=== PATIENT | male | born 1995 | race American Indian/Alaskan Native ===

== ENCOUNTER 2018-02-16 17:26 | Emergency (ER) | payer SELFPAY ==
[2018-02-16] MEDS ORDERED: TORADOL IM ONE (19:32)
--- NOTE | 2018-02-16 19:40 | Emergency Department Report ---
[facility] Doc - Documentation Documentation: Patient is a 22-year-old -[place] male who fell down a flight of stairs 24 hours ago. Patient states he was loss of consciousness he fell on concrete. Patient is hurting in his his neck ribs upper back at this time. Patient will have CTs of his C-spine chest and abdomen which will also sh bony structures and will be reassessed NICCI ow
--- NOTE | 2018-02-16 19:41 | Emergency Department Report ---
ED Fall HPI - General Chief Complaint: Fall Stated Complaint: FALL Time Seen by Provider: 02/16/18 19:28 Source: patient, family, EMS Mode of arrival: Wheelchair - Related Data Home Medications Medication Instructions Recorded Confirmed Last Taken Insulin Lispro [Humalog 100 0 units SUB-Q TID 07/06/15 07/06/15 Unknown UNITS/ML Kwikpen] Insulin NPH Human Isophane 15 unit SQ BID 07/06/15 07/06/15 Unknown [HumuLIN N] Previous Rx's Medication Instructions Recorded Last Taken Type Amoxicillin [Trimox CAP] 500 mg PO BID #20 capsule 07/06/15 Unknown Rx Antipyrine/Benzocaine/Glycerin 2 drops AU Q8HR #1 bottle 07/06/15 Unknown Rx [Auralgan Otic] Allergies Allergy/AdvReac Type Severity Reaction Status Date / Time No Known Allergies Allergy Verified 02/16/18 17:30 ED Review of Systems ROS: Stated complaint: FALL Other details as noted in HPI ED Past Medical Hx - Past Medical History Hx Diabetes: Yes (TYPE 1) - Surgical History Additional Surgical History: Jaw surgery - Social History Smoking Status: Never Smoker Substance Use Type: None - Medications Home Medications: Home Medications Medication Instructions Recorded Confirmed Last Taken Type Amoxicillin [Trimox CAP] 500 mg PO BID #20 capsule 07/06/15 Unknown Rx Antipyrine/Benzocaine/Glycerin 2 drops AU Q8HR #1 bottle 07/06/15 Unknown Rx [Auralgan Otic] Insulin Lispro [Humalog 100 0 units SUB-Q TID 07/06/15 07/06/15 Unknown History UNITS/ML Kwikpen] Insulin NPH Human Isophane 15 unit SQ BID 07/06/15 07/06/15 Unknown History [HumuLIN N] ED Physical Exam - General Limitations: No Limitations ED Course Vital Signs 02/16/18 17:30 Temperature 98.7 F Pulse Rate 68 Respiratory 18 Rate Blood Pressure 142/104 O2 Sat by Pulse 100 Oximetry Critical care attestation.: If time is entered above; I have spent that time in minutes in the direct care of this critically ill patient, excluding procedure time. ED Disposition Condition: Stable Referrals: LEIGH SULLIVAN MD [Primary Care Provider] - 3-5 Days
--- NOTE | 2018-02-16 20:42 | Cat Scan Report ---
FINAL REPORT PROCEDURE: CT HEAD/BRAIN WO CON TECHNIQUE: Computerized tomography of the head was performed without contrast material. HISTORY: fakll injury on stairs LOC, neck back rib pain COMPARISON: No prior studies are available for comparison. FINDINGS: Skull and scalp: Normal. Paranasal sinuses: Normal. Ventricles and subarachnoid spaces: Normal. Cerebrum: No evidence of hemorrhage, acute infarction or mass . Cerebellum and brainstem: No evidence of hemorrhage, acute infarction or mass. Vasculature: Normal. Comments: None. IMPRESSION: Normal Examination
--- NOTE | 2018-02-16 21:10 | Cat Scan Report ---
FINAL REPORT PROCEDURE: CT CERVICAL SPINE WO CON TECHNIQUE: Computerized tomography of the cervical spine was performed from the skull base to T1 without contrast material. HISTORY: fakll injury on stairs LOC, neck back rib pain COMPARISON: No prior studies are available for comparison. FINDINGS: There is straightening of the cervical spine. Vertebral height is within normal limits. An acute fracture is not identified. Prevertebral soft tissues are within normal limits. Visualized lung apices are clear. Soft tissues are unremarkable. Thyroid demonstrates normal size and density. Visualized bilateral paranasal sinuses and mastoid air cells are clear. C1-2: No significant abnormality. C2-3: No significant abnormality. C3-4: No significant abnormality. C4-5: No significant abnormality. C5-6: No significant abnormality. C6-7: No significant abnormality. C7-T1: No significant abnormality. Other: No additional findings. IMPRESSION: No acute fracture Straightening of the cervical spine is most likely secondary to spasm or positioning..
--- NOTE | 2018-02-16 21:22 | Cat Scan Report ---
FINAL REPORT PROCEDURE: CT CHEST WO CON TECHNIQUE: Computerized axial tomography of the chest was performed without contrast material. This study is performed without intravenous contrast and the sensitivity for pathology, including neoplasms, adenopathy, abscess, pulmonary embolism and aortic dissection, is reduced. HISTORY: fakll injury on stairs LOC, neck back rib pain COMPARISON: No prior studies are available for comparison. TECHNICAL QUALITY: Satisfactory. FINDINGS: This study is limited due to lack of contrast. Anterior mediastinal fat is replaced by soft tissue density lesion measuring about 2.9 x 2.4 x 2.6 centimeters with slightly convex margin on the left and ring slightly concave margin on the right is Heart and pericardium: Normal. Thoracic aorta: Normal. Pulmonary vasculature: Normal. Lymph nodes: No enlarged thoracic lymph nodes. Lungs: Normal. Pleural space: No effusion, thickening, or pneumothorax. Musculoskeletal structures: No significant abnormality. IMPRESSION: Increased density of the anterior mediastinal region is suspicious for mediastinal hemorrhage. Aortic injury cannot be excluded. CT angio is recommended. No acute pulmonary process..
--- NOTE | 2018-02-16 21:35 | Cat Scan Report ---
FINAL REPORT PROCEDURE: CT ABDOMEN WO CON TECHNIQUE: Computerized axial tomography of the abdomen was performed without intravenous contrast. This study is performed without intravascular contrast material and its sensitivity for abdominal and pelvic pathology, including neoplasms, inflammation, abscess, free fluid, thrombosis, arterial dissection and infarction, is reduced compared with a contrast enhanced study. HISTORY: fakll injury on stairs LOC, neck back rib pain COMPARISON: No prior studies are available for comparison. FINDINGS: Liver, spleen, pancreas and bilateral adrenal glands are within normal limits. Bilateral kidneys demonstrate normal density without calculi or hydronephrosis. Aorta is of normal caliber. There is no free fluid or free air. Gallbladder is contracted. Small bowel loops are within normal limits. Moderate degree residual stool. Appendix is normal. Moderate amount of residual food material is noted in the stomach. IMPRESSION: Impression Limited study due to lack of contrast. No obvious acute intra-abdominal or pelvic pathology as visualized on this noncontrast study.
[2018-02-16] MEDS ORDERED: MORPHINE IV ONE (21:43)
[2018-02-16] MEDS ORDERED: ZOFRAN IV ONE (21:43)
--- NOTE | 2018-02-16 21:43 | Emergency Department Report ---
Chief Complaint: Fall Stated Complaint: FALL Time Seen by Provider: 02/16/18 19:00 - HPI History of Present Illness: Patient reports that he fell down a flight of stairs yesterday and complaining of bilateral flank pain, right rib pain and neck pain posteriorly. Patient and denies any headache but reports that he is having generalized pain. Denies any chest wall or abdominal pain. He reports upper and lower back pain. Pain is 7 out of 10 and achy. Nothing makes it better and nothing makes it worse. Patient said he took plain Tylenol at home and it didn't help. Denies vomiting blood. Denies any bruising to his skin. EMS reported that patient blood glucose was at 333. Patient blood pressure is 142/104 and he denies history of high blood pressure. - ROS Review of Systems: All systems are negative unless stated in HPI above - Exam Vital Signs: Vital Signs 02/16/18 17:30 Temperature 98.7 F Pulse Rate 68 Respiratory 18 Rate Blood Pressure 142/104 O2 Sat by Pulse 100 Oximetry Physical Exam: Gen.: This is a 22-year-old male well-nourished well-developed in no acute distress. Neck: Positive C-spine tenderness, full range of motion no tracheal deviation. Supple Back: Positive vertebral spine lumbar and thoracic tenderness. Positive posterior left rib tenderness. Neurological: Alert and oriented 3, normal gait, normal speech. Ambulate without any difficulties. MSE screening note: Focused history and physical exam performed. Due to findings the following was ordered:transfer to main ed ED Medical Decision Making - Medical Decision Making ED course: Radiologist called to report abnormal CT and wanted patient to CTA Angio of the tests because suspicion for injury to the thoracic aorta. Patient transferred to main ED to and trauma labs ordered along with CT scans. Spoke with Dr. Iniguez regarding patient. Patient stable upon transfer to [facility]. I discussed with patient reason for transfer and he understands. ED Disposition for MSE Condition: Stable Referrals: LEIGH SULLIVAN MD [Primary Care Provider] - 3-5 Days
[2018-02-16 22:05] LABS: INR 0.87 (0.87-1.13)
[2018-02-16 22:06] LABS: Partial Thromboplastin Time 24.3 Sec. (24.2-36.6)
[2018-02-16 22:07] LABS: Bilirubin,Urine NEG (Negative); Blood,Urine NEG (Negative); Color,Urine Yellow (Yellow); Protein,Urine <15 mg/dL mg/dL (Negative); Urobilinogen,Urine < 2.0 mg/dL (<2.0); WBC,Urine < 1.0 /HPF (0.0-6.0)
--- NOTE | 2018-02-16 22:11 | Emergency Department Report ---
HPI - General Chief Complaint: Fall Time Seen by Provider: 02/16/18 19:28 - HPI HPI: The patient is a 22-year-old male who presents for evaluation of upper chest pain, neck pain, side pain, and back pain. The patient states that he fell down approximately 10 stairs 24 hours ago, has experienced moderate in severity aching pain to the chest, right ribs, and back, constant since onset, exacerbated with twisting of the body. He denies headache, dyspnea, abdominal pain, pain to the extremities, flank pain, paresthesias, or lateralizing motor deficit, or other focal neurological deficit. ED Past Medical Hx - Past Medical History Hx Diabetes: Yes (TYPE 1) - Surgical History Additional Surgical History: Jaw surgery - Social History Smoking Status: Never Smoker Substance Use Type: None - Medications Home Medications: Home Medications Medication Instructions Recorded Confirmed Last Taken Type Amoxicillin [Trimox CAP] 500 mg PO BID #20 capsule 07/06/15 Unknown Rx Antipyrine/Benzocaine/Glycerin 2 drops AU Q8HR #1 bottle 07/06/15 Unknown Rx [Auralgan Otic] Insulin Lispro [Humalog 100 0 units SUB-Q TID 07/06/15 07/06/15 Unknown History UNITS/ML Kwikpen] Insulin NPH Human Isophane 15 unit SQ BID 07/06/15 07/06/15 Unknown History [HumuLIN N] traMADol [Ultram 50 MG tab] 50 mg PO Q6HR PRN #15 tablet 02/17/18 Unknown Rx ED Review of Systems ROS: Stated complaint: FALL Other details as noted in HPI Constitutional: denies: fever ENT: denies: throat pain, reports ant lower neck pain Respiratory: denies: cough, shortness of breath Cardiovascular: reports chest pain Endocrine: denies unexplained weight loss or gain Gastrointestinal: denies: abdominal pain, nausea Genitourinary: denies: dysuria Musculoskeletal: reports back pain, side pain Skin: denies: rash Neurological: denies: headache Hematological/Lymphatic: denies: easy bleeding or easy bruising Psych: denies sadness or hopelessness Physical Exam - Physical Exam Vital Signs: Vital Signs 02/16/18 02/16/18 17:30 21:39 Temperature 98.7 F 98.3 F Pulse Rate 68 66 Respiratory 18 18 Rate Blood Pressure 142/104 Blood Pressure 143/94 [Left] O2 Sat by Pulse 100 99 Oximetry Physical Exam: General: well-nourished, well-developed, no acute distress Head: Normocephalic, atraumatic Eyes: normal sclera ENT: Mucous membranes are pink and moist Neck: trachea midline, neck supple, No neck stiffness, no cervical adenopathy Respiratory: Breath sounds equal bilaterally, no wheezing, rales, or rhonchi Cardio: S1 and S2 present, no murmurs, rubs, gallops, capillary refill is brisk Abdomen: Normoactive bowel sounds, soft abdomen, no rigidity, no guarding or rebound tenderness Chest WALL/Back: tenderness to palpation of the chest wall upper sternum and right lower ribs at the mid-axillary line, no CVA tenderness with percussion Musc: No pitting edema Skin: No rash Neuro: no facial drooping, normal speech Psych: Normal affect ED Course Vital Signs 02/16/18 02/16/18 17:30 21:39 Temperature 98.7 F 98.3 F Pulse Rate 68 66 Respiratory 18 18 Rate Blood Pressure 142/104 Blood Pressure 143/94 [Left] O2 Sat by Pulse 100 99 Oximetry ED Medical Decision Making - Lab Data Result diagrams: 02/17/18 02:04 02/16/18 21:47 - Medical Decision Making The patient was seen and examined by myself. The patient is placed on a supervisor elementary education and continuous pulse ox. On initial evaluation, the patient was found to be in no distress. Evaluation orders were placed. The patient is given IM Toradol by ED provider Dr. Bauer, whom performed initial evaluation and placed initial orders. CT scan of the chest without contrast revealed a mediastinal findings concerning for potential hemorrhage, and aortic dissection was unable to be ruled out. As such blood work and a CT angiogram of the chest and abdomen have been ordered. The patient given IV pain medication. Lab results revealed mildly elevated glucose of 236, and otherwise are grossly reassuring including normal hemoglobin and hematocrit levels. CT angiogram of the chest is negative for aortic dissection or pulmonary embolism, and again reveals superior mediastinum likely hematoma. CT scan the head was negative. CT scan the cervical spine was unremarkable. CT scan abdomen and pelvis was unremarkable the patient was reevaluated and reported that his pain is completely resolved and that he is asymptomatic and feels fine at his normal baseline. He is currently smiling and actively engaging in conversation. Dr. Goodman, a cardiothoracic surgeon was consulted. He discussed the patient' s presentation and evaluation findings and submitted that the patient's does not have an active hemorrhage as his injury occurred greater than one day ago, and as the patient has normal vital signs, normal hemoglobin and hematocrit, and no pain. Dr. Salomon submitted that the patient is stable for outpatient follow-up. The patient was reevaluated and reported that their symptoms were markedly improved. The patient is stable for discharge with outpatient follow- up. The patient is given follow-up and return instructions. The patient expressed understanding and agreed with the plan. The patient is discharged in stable condition. Critical care attestation.: If time is entered above; I have spent that time in minutes in the direct care of this critically ill patient, excluding procedure time. ED Disposition Clinical Impression: Acute chest pain, Rib pain on right side, Neck pain, acute Chest wall hematoma Qualifiers: Encounter type: initial encounter Laterality: unspecified laterality Qualified Code(s): S20.219A - Contusion of unspecified front wall of thorax, initial encounter Acute low back pain Qualifiers: Back pain laterality: bilateral Sciatica presence: without sciatica Qualified Code(s): M54.5 - Low back pain Disposition: DC-01 TO HOME OR SELFCARE Is pt being admited?: No Does the pt Need Aspirin: No Condition: Stable Instructions: Chest Pain (ED), Contusion in Adults (ED), Musculoskeletal Pain ( ED), Back Pain (ED) Prescriptions: traMADol [Ultram 50 MG tab] 50 mg PO Q6HR PRN #15 tablet PRN Reason: Pain Referrals: LEIGH SULLIVAN MD [Primary Care Provider] - 3-5 Days Forms: Accompanied Note, Work/School Release Form(ED) Time of Disposition: 03:49
[2018-02-16 22:13] LABS: Alanine Aminotransferase 15 units/L (7-56); Albumin 4.8 g/dL (3.9-5); BUN/Creatinine Ratio 23; Blood Urea Nitrogen 14 mg/dL (9-20); Calcium 9.8 mg/dL (8.4-10.2); Hemolysis Index 19
--- NOTE | 2018-02-16 23:19 | Cat Scan Report ---
FINAL REPORT PROCEDURE: CT ANGIO CHEST TECHNIQUE: Computerized tomographic angiography of the chest was performed after the IV injection of iodinated nonionic contrast including image processing. The image data was postprocessed using 2-dimensional multiplanar reformatted (MPR) and 3-dimensional (MIP and/or volume rendered) techniques. HISTORY: chest pain COMPARISON: No prior studies are available for comparison. FINDINGS: Heart and pericardium: Normal. Thoracic aorta: Normal. Pulmonary vasculature: Normal. Lymph nodes: No enlarged thoracic lymph nodes. Lungs: Normal. Pleural space: No effusion, thickening, or pneumothorax. Musculoskeletal structures: No significant abnormality. Diffuse soft tissue density involving the superior mediastinum is again noted. IMPRESSION: No evidence of aortic injury. Superior mediastinal anterior soft tissue density most likely represents hematoma secondary to venous hemorrhage.
--- NOTE | 2018-02-16 23:22 | Cat Scan Report ---
FINAL REPORT PROCEDURE: CT ANGIO ABDOMEN PELVIS TECHNIQUE: Computerized axial tomographic angiography of the abdomen and pelvis was performed after the IV injection of iodinated nonionic contrast. The image data was postprocessed using 2-dimensional multiplanar reformatted (MPR) and 3-dimensional (MIP and/or volume rendered) techniques. HISTORY: chest pain, aorta injury suspected COMPARISON: No prior studies are available for comparison. FINDINGS: Abdominal aorta: Normal. Celiac artery: Normal. Superior mesenteric artery: Normal. Left renal artery: Normal. Right renal artery: Normal. Inferior mesenteric artery: Normal Common iliacs: Normal. External iliacs: Normal. Internal iliacs: Normal. Hypervascular masses: Normal. Abdominal and pelvic viscera: Normal. Other: None. IMPRESSION: Unremarkable study
[2018-02-17] MEDS ORDERED: HumuLIN R IV ONE (00:47)
[2018-02-17] MEDS ORDERED: NACL 0.9% 1000 ML 1,000 ML IV ONE (00:47)
[2018-02-17 02:32] LABS: Hematocrit 44.1 % (35.5-45.6); Mean Corpuscular HGB Conc 34 % (32-34); Mean Corpuscular Hemoglobin 28 pg (28-32); Mean Corpuscular Volume 81 fl (84-94); Platelet Count 203 K/mm3 (140-440); Red Blood Count 5.43 M/mm3 (3.65-5.03)
[2018-02-17 02:43] VITALS: BP 119/68
[2018-02-17 03:45] LABS: RBC Morphology Normal; Total Cells Counted 100
== END 2018-02-17 04:45 | disposition home or self-care (01) ==
LOC: ED 17:26
DX: S20.211A Contusion of right front wall of thorax, initial encounter (principal); M54.5 Low back pain; M54.2 Cervicalgia; R51 Headache; E10.9 Type 1 diabetes mellitus without complications; M79.1 Myalgia; Z79.4 Long term (current) use of insulin; W10.9XXA Fall (on) (from) unspecified stairs and steps, initial encounter; Y93.89 Activity, other specified; Y92.89 Other specified places as the place of occurrence of the external cause; Y99.8 Other external cause status
CPT/HCPCS: 36415; 70450; 71250; 71275; 72125; 74150; 74174; 80053; 81001; 82962; 85007; 85025; 85610; 85730; 96372; 96374; 96375; 99285; J1885; J2270; J2405; J7030; Q9967; J1815